=== PATIENT | female | born 1995 | race Caucasian/White ===

== ENCOUNTER 2017-09-23 19:47 | Emergency (ER) | payer BC ==
[~2017-09-23] VITALS: Ht 165.1 cm; Wt 83.5 kg
[2017-09-23 21:05] VITALS: BP 125/74
== END 2017-09-23 21:05 | disposition home or self-care (01) ==
LOC: ED 19:47
DX: M54.6 Pain in thoracic spine (principal); M54.5 Low back pain; Z88.8 Allergy status to other drugs, medicaments and biological substances